=== PATIENT | female | born 1985 | race African-American/Black ===

== ENCOUNTER 2018-09-28 09:16 | Inpatient (IN) | payer MEDICARE, OTHER ==
[~2018-09-28] VITALS: Ht 165.1 cm; Wt 74.8 kg
[2018-09-28 11:40] VITALS: BP 116/69
--- NOTE | 2018-09-28 11:40 | NUR ---
RN NOTES RECEIVED PT FROM Lazaro BARTLETT, ON 2L O2 N/C , RESPIRATION EVEN AND UNLABORED, NO SOB NOTED , C/O GENERALIZED PAIN . ON TELE SR HR IN 70'S , L UPPER CHEST PORT A CATH , SITE CLEAN ,DRY AND INTACT, JESSICA BAILEY BURRING WHEEL OPERATOR NOTIFED REGARDING PT ARRIVAL TO THE FLOOR, SR UP X3, CALL LIGHT WITHIN EASY REACH, BED LOCKED AND IN LOWEST POSITION . CONTINUE TO MONITOR
[2018-09-28] MEDS ORDERED: [UNRECOGNIZED DRUG - OTHER] (11:41)
[2018-09-28] MEDS ORDERED: MAGNESIUM HYDROXIDE 30 ML UDC PO PRN (12:30)
[2018-09-28] MEDS ORDERED: HYDROMORPHONE INJ 2 MG/ML DISP.SYRIN IV PRN (12:30)
[2018-09-28] MEDS ORDERED: ACETAMINOPHEN 325 MG TABLET PO PRN (12:30)
[2018-09-28] MEDS ORDERED: HYDROCODONE/APAP 10/325MG 1 EA TABLET PO PRN (12:30)
[2018-09-28] MEDS ORDERED: HYDROCODONE/APAP 5/325MG 1 EACH TABLET PO PRN (12:30)
[2018-09-28] MEDS ORDERED: MAG HYDROX/AL HYDROX/SIMETH 30 ML UDC PO PRN (12:30)
[2018-09-28] MEDS ORDERED: Z GUARD REMEDY 2 OZ OINT TP PRN (12:30)
[2018-09-28] MEDS ORDERED: TIZA4TAB4 PO (12:54)
[2018-09-28] MEDS ORDERED: LORA0.5T PO (12:54)
[2018-09-28] MEDS ORDERED: DEFE360T PO (12:54)
[2018-09-28] MEDS ORDERED: ALBU18HF2 INH (12:54)
[2018-09-28] MEDS ORDERED: DIPH25CA83 PO (12:54)
[2018-09-28] MEDS ORDERED: MULT-24 PO (12:54)
[2018-09-28] MEDS ORDERED: FOLI1TAB16 PO (12:54)
[2018-09-28] MEDS ORDERED: FLUT1DIS3 IH (12:54)
[2018-09-28] MEDS ORDERED: ZOLP10TA6 PO (12:54)
[2018-09-28] MEDS ORDERED: CHOL100044 PO (12:54)
[2018-09-28] MEDS ORDERED: FERRIPROX PO (12:55)
--- NOTE | 2018-09-28 13:00 | NUR ---
RN NOTES PT STATED WILL BRING HOME MEDS SOON SHE CAN.
[2018-09-28] MEDS: IV NS 0.9% 1,000 ML IV PRN (13:02)
[2018-09-28 13:20] LABS: BASOPHILS # (AUTO) 0.5 /CMM (0.0-0.2); BASOPHILS % (AUTO) 4.5 % (0.0-2.0); HEMATOCRIT 22 % (33-45); HEMOGLOBIN 7.5 g/dL (11.5-14.8); LYMPHOCYTES # (AUTO) 3.5 /CMM (0.8-4.8); LYMPHOCYTES % (AUTO) 30.4 % (20.0-44.0); MEAN CORPUSCULAR HGB CONC 34 g/dl (31.0-36.0); MEAN CORPUSCULAR VOLUME 80 fL (82-100); MONOCYTES # (AUTO) 1.4 /CMM (0.1-1.30); MONOCYTES % (AUTO) 12.5 % (2.0-12.0); NEUTROPHILS # (AUTO) 5.5 /CMM (1.8-8.9); NEUTROPHILS % (AUTO) 48.6 % (43.0-81.0); PLATELET COUNT (AUTO) 477 /CMM (150-450); RED BLOOD CELL COUNT(AUTO) 2.73 MIL/uL (4.0-5.2); WHITE BLOOD COUNT (AUTO) 11.4 K/uL (4.3-11.0)
[2018-09-28 13:37] LABS: ALBUMIN 3.2 g/dL (3.4-5.0); BILIRUBIN,TOTAL 2.5 mg/dL (0.2-1.0); CALCIUM, SERUM 8.4 mg/dL (8.5-10.1); CREATININE 0.7 mg/dL (0.6-1.3); MAGNESIUM 1.4 mg/dL (1.8-2.4); PHOSPHORUS 4.2 mg/dL (2.5-4.9); POTASSIUM 3.9 mmol/L (3.5-5.1); TOTAL PROTEIN, SERUM 7.9 g/dL (6.4-8.2)
[2018-09-28] MEDS ORDERED: diphenhydrAMINE HCL 50 MG/ML VIAL IV PRN (14:00)
[2018-09-28] MEDS ORDERED: KEY,NONCONTROL,TO KEEP IN PYXI 1 EA MC ONE ×3 (14:33→20:12)
[2018-09-28] MEDS ORDERED: Magnesium 1GM/D5W 100ML PREMIX 100 ML IV SCH (15:00)
[2018-09-28] MEDS ORDERED: ALBUTEROL FS 2.5 MG/0.5 ML VIAL.NEB NEB PRN (15:00)
[2018-09-28] MEDS ORDERED: TIZANIDINE HCL 4 MG TABLET PO PRN (15:00)
[2018-09-28] MEDS ORDERED: IPRATROPIUM NEB FS 0.5 MG/2.5 ML AMPUL.NEB NEB PRN (15:00)
[2018-09-28] MEDS ORDERED: diphenhydrAMINE HCL 25 MG CAPSULE PO PRN (15:00)
[2018-09-28] MEDS ORDERED: LORAZEPAM 0.5 MG TABLET PO PRN (15:00)
[2018-09-28] MEDS: NS 0.9% IV PRN ×2 (15:22→20:21)
[2018-09-28] MEDS: HYDROMORPHONE IV PRN ×2 (15:22→20:21)
[2018-09-28] MEDS ORDERED: diphenhydrAMINE HCL 50 MG/ML VIAL IV ONE (15:30)
--- NOTE | 2018-09-28 15:44 | NUR ---
HAND ALTERATIONS SEAMSTRESS NOTES RECEIVED REPORT FROM DARREL FOR MARS.
--- NOTE | 2018-09-28 15:50 | NUR ---
RN NOTES REPORT GIVEN TO STEPHY JEWELL FOR CONTINUITY OF CARE .
[2018-09-28 16:00] VITALS: BP 113/71
[2018-09-28] MEDS: Magnesium 1GM/D5W 100ML PREMIX 100 ML IV SCH ×6 (16:20→21:00)
--- NOTE | 2018-09-28 16:22 | NUR ---
FUNERAL SERVICE APPRENTICE NOTES DC DILAUDID PUMP
--- NOTE | 2018-09-28 16:55 | NUR ---
SCALES INSPECTOR NOTES KEYS RETURNED IN OMNICELL
[2018-09-28] MEDS ORDERED: FLUTICASONE/SALMETEROL DISKUS IH SCH (17:00)
[2018-09-28] MEDS ORDERED: FERRIPROX PO SCH (17:00)
[2018-09-28] MEDS: ENOXAPARIN SODIUM 40 MG/0.4 ML DISP.SYRIN SQ SCH (17:00)
[2018-09-28] MEDS ORDERED: CEFTRIAXONE 1 G in IV NS 0.9% 100 ML IV SCH (18:00)
[2018-09-28] MEDS ORDERED: CEFTRIAXONE 1 G in IV D5W 50 ML IV SCH (18:30)
--- NOTE | 2018-09-28 18:58 | NUR ---
NURSING STUDENT NOTES PT RESTING IN BED. NOT IN ANY DISTRESS. NO SOB, DENIES PAIN. ONGOING MAGNESIUM IV 3RD BAG TO LEFT UPPER ARM PICC LINE. SITE CLEAR. ROCEPHIN IV NOT AVAILABLE YET AT THIS TIME. ALL NEEDS MET FOR NOW. SAFETY MEASURES IN PLACE. NO OTHER SIGNIFICANT CHANGE IN CONDITION. ENDORSED TO NEXT SHIFT FOR MARS.
[2018-09-28] MEDS: D5W IV PRN (19:40)
[2018-09-28] MEDS: DIPHENHYDRAMINE HCL IV PRN (19:40)
[2018-09-28 20:00] VITALS: BP 143/84
--- NOTE | 2018-09-28 20:15 | NUR ---
QUARRY EXTRACTION WORKER OPENING NOTES RECEIVED REPORT FROM STEPHY JEWELL. PATIENT A/A/O X4, ABLE TO MAKE NEEDS KNOWN. BREATHING EVEN & UNLABORED, TOLERATING ROOM AIR & REFUSES TO WEAR NC. SATING WELL @ 100%. DENIES ANY SOB OR DIFFICULTY BREATHING. ON TELE W/ SINUS RHYTHM, HR 89. LEFT CHEST WALL PORT-A-CATH INTACT & PATENT W/ DRESSING CDI & IVF NS INFUSING WELL @ 150 ML/HR. ALSO W/ ONGOING BENADRYL INFUSION. C/O GENERALIZED BODY PAIN W/ PAIN LEVEL 9/10, REPAIR ELECTRIC MOTOR ASSEMBLER PUMP W/ DILAUDID TO BE STARTED. SAFETY MEASURES MAINTAINED W/ SIDE RAILS UP & CALL LIGHT WITHIN REACH. ABLE TO AMBULATE INDEPENDENTLY. WILL CONTINUE TO MONITOR.
--- NOTE | 2018-09-28 20:49 | NUR ---
MEDICARE COMPLIANCE AUDITOR NOTES IV DILAUDID VIA SUPERVISOR QUILTING PUMP STARTED ALONG W/ IV ROCEPHIN. CHECKED COMPATIBILITY W/ PHARMACY & OK TO GIVE @ THE SAME TIME.
[2018-09-28] MEDS ORDERED: DOXYCYCLINE 100 MG in IV NS 0.9% 100 ML IV SCH (21:00)
[2018-09-29] VITALS: BP 129/75
[2018-09-29] MEDS: D5W IV PRN ×5 (00:46→20:47)
[2018-09-29] MEDS: DIPHENHYDRAMINE HCL IV PRN ×5 (00:46→20:47)
[2018-09-29] MEDS: HYDROMORPHONE IV PRN ×5 (01:23→21:31)
[2018-09-29] MEDS: NS 0.9% IV PRN ×5 (01:23→21:31)
[2018-09-29 04:00] VITALS: BP 113/70
[2018-09-29 04:34] LABS: BASOPHILS # (AUTO) 0.3 /CMM (0.0-0.2); BASOPHILS % (AUTO) 1.9 % (0.0-2.0); EOSINOPHILS % (AUTO) 5.7 % (0.0-6.0); HEMATOCRIT 21 % (33-45); HEMOGLOBIN 7.4 g/dL (11.5-14.8); LYMPHOCYTES # (AUTO) 5.6 /CMM (0.8-4.8); LYMPHOCYTES % (AUTO) 41.5 % (20.0-44.0); MEAN CORPUSCULAR HGB CONC 35 g/dl (31.0-36.0); MEAN CORPUSCULAR VOLUME 81 fL (82-100); MONOCYTES # (AUTO) 1.6 /CMM (0.1-1.30); MONOCYTES % (AUTO) 12.1 % (2.0-12.0); NEUTROPHILS # (AUTO) 5.2 /CMM (1.8-8.9); NEUTROPHILS % (AUTO) 38.8 % (43.0-81.0); PLATELET COUNT (AUTO) 462 /CMM (150-450); RED BLOOD CELL COUNT(AUTO) 2.63 MIL/uL (4.0-5.2); WHITE BLOOD COUNT (AUTO) 13.4 K/uL (4.3-11.0)
[2018-09-29 05:04] LABS: CALCIUM, SERUM 8.1 mg/dL (8.5-10.1); CREATININE 0.6 mg/dL (0.6-1.3); MAGNESIUM 1.9 mg/dL (1.8-2.4); PHOSPHORUS 4.1 mg/dL (2.5-4.9); POTASSIUM 4.3 mmol/L (3.5-5.1)
[2018-09-29 05:10] LABS: BILIRUBIN,DIRECT 0.5 mg/dL (0.0-0.2); BILIRUBIN,TOTAL 2.2 mg/dL (0.2-1.0)
[2018-09-29 05:26] LABS: THYROID STIMULATING HORMONE 4.28 uIU/mL (0.358-3.74)
[2018-09-29 06:53] LABS: BILIRUBIN,URINE NEGATIVE (NEGATIVE); BLOOD, URINE NEGATIVE Ery/uL (NEGATIVE); COLOR,URINE YELLOW (YELLOW); KETONES,URINE NEGATIVE (NEGATIVE); LEUKOCYTE ESTERASE ,URINE NEGATIVE (NEGATIVE); NITRITE, URINE NEGATIVE (NEGATIVE); PH,URINE 6.5 (5.0-8.0); PROTEIN,URINE NEGATIVE (NEGATIVE); UGLUCOSE NEGATIVE (NEGATIVE)
[2018-09-29 07:53] LABS: APPEARANCE,URINE SLIGHTLY CLOUDY (CLEAR)
[2018-09-29 07:55] LABS: BACTERIA,URINE None seen /HPF (None Seen); RBC,URINE 0-2 /HPF (0-2); SQUAMOUS EPITHELIAL CELL,UR Few /HPF (None Seen); WBC,URINE 0-2 /HPF (0-3)
[2018-09-29 08:00] VITALS: BP 122/78
--- NOTE | 2018-09-29 08:51 | NUR ---
WOUND CARE CONSULT: PT PRESENTS WITH RT HIP SCAR, PRESENT ON ADMISSION. PT IS AMBULATORY AND CONTINENT. PT TO PROTECT SCAR WITH MEPILEX WHILE SHE IS LYING IN BED. DISCUSSED WITH NURSING STAFF. WILL SEE PRN. CURRENT JESSE SCORE IS 21. Addendum: 09/29/18 at 0852 by FERMIN THOMPSON WNDNU Amended: Links added.
[2018-09-29] MEDS: FLUTICASONE/VILANTEROL 1 EACH BLST.W.DEV IH SCH (08:55)
[2018-09-29] MEDS: MULTIVITAMINS,THERAGRAN 1 UDTAB TABLET PO SCH (08:58)
[2018-09-29] MEDS: FOLIC ACID 1 MG TABLET PO SCH (08:58)
[2018-09-29] MEDS: CHOLECALCIFEROL 1,000 UNIT TABLET (VIT D3) PO SCH (08:58)
[2018-09-29] MEDS ORDERED: DEFERASIROX PO SCH (09:00)
[2018-09-29] MEDS: IV NS 0.9% 1,000 ML IV PRN ×2 (09:19→22:38)
[2018-09-29] MEDS: LINEZOLID RTU BAG 600 MG in PREMIX 1 EA IV SCH ×2 (11:33→20:49)
[2018-09-29] MEDS: PIPERACILLIN /TAZOBACTAM 3.375 G in IV D5W 50 ML IV SCH ×2 (13:47→18:11)
--- NOTE | 2018-09-29 14:05 | NUR ---
ms rn notes dr villagomez rounded with patient. all questions answered.
[2018-09-29 16:00] VITALS: BP_SYST 120; BP_SYST 122; BP_DIAS 68; BP_DIAS 78
[2018-09-29] MEDS ORDERED: CEFTRIAXONE 1 G in IV D5W 50 ML IV SCH (18:00)
--- NOTE | 2018-09-29 19:00 | NUR ---
MS RN NOTES PT IN STABLE CONDITION. NO C/O PAIN AT THIS TIME. ENDORSED TO PM NURSE FOR MARS.
[2018-09-29 20:00] VITALS: BP 122/69
--- NOTE | 2018-09-29 20:00 | NUR ---
INSPECTOR PRINTED CIRCUIT BOARDS OPENING NOTES RECEIVED REPORT FROM JOHN JEWELL. PATIENT A/A/O X4, ABLE TO MAKE NEEDS KNOWN. BREATHING EVEN & UNLABORED, TOLERATING ROOM AIR & REFUSES TO WEAR NC. SATING WELL @ 100%. DENIES ANY SOB OR DIFFICULTY BREATHING. RADIAL PULSES PRESENT, REFUSING TO WEAR TELE LEADS. LEFT CHEST WALL PORT-A-CATH INTACT & PATENT W/ DRESSING CDI & IVF NS INFUSING WELL @ 150 ML/HR. C/O GENERALIZED BODY PAIN W/ PAIN LEVEL 9/10, SUPERINTENDENT COMPRESSOR STATIONS PUMP W/ DILAUDID TO BE STARTED. SAFETY MEASURES MAINTAINED W/ SIDE RAILS UP & CALL LIGHT WITHIN REACH. ABLE TO AMBULATE INDEPENDENTLY. WILL CONTINUE TO MONITOR.
[2018-09-29] MEDS: ENOXAPARIN SODIUM 40 MG/0.4 ML DISP.SYRIN SQ SCH (20:47)
[2018-09-30] MEDS: PIPERACILLIN /TAZOBACTAM 3.375 G in IV D5W 50 ML IV SCH ×5 (00:13→23:19)
[2018-09-30] MEDS: DIPHENHYDRAMINE HCL IV PRN ×6 (00:55→21:05)
[2018-09-30] MEDS: D5W IV PRN ×6 (00:55→21:05)
[2018-09-30] MEDS: ZOLPIDEM TARTRATE 10 MG TABLET PO PRN (01:28)
[2018-09-30] MEDS: NS 0.9% IV PRN ×6 (01:29→21:58)
[2018-09-30] MEDS: HYDROMORPHONE IV PRN ×6 (01:29→21:58)
[2018-09-30 04:00] VITALS: BP 130/62
[2018-09-30 07:26] LABS: BASOPHILS # (AUTO) 0.4 /CMM (0.0-0.2); BASOPHILS % (AUTO) 2.9 % (0.0-2.0); EOSINOPHILS % (AUTO) 8.6 % (0.0-6.0); HEMATOCRIT 21 % (33-45); HEMOGLOBIN 7.1 g/dL (11.5-14.8); LYMPHOCYTES # (AUTO) 4.6 /CMM (0.8-4.8); LYMPHOCYTES % (AUTO) 34.3 % (20.0-44.0); MEAN CORPUSCULAR HGB CONC 34 g/dl (31.0-36.0); MEAN CORPUSCULAR VOLUME 81 fL (82-100); MONOCYTES % (AUTO) 15.3 % (2.0-12.0); NEUTROPHILS # (AUTO) 5.2 /CMM (1.8-8.9); NEUTROPHILS % (AUTO) 38.9 % (43.0-81.0); PLATELET COUNT (AUTO) 472 /CMM (150-450); RED BLOOD CELL COUNT(AUTO) 2.58 MIL/uL (4.0-5.2); WHITE BLOOD COUNT (AUTO) 13.3 K/uL (4.3-11.0)
[2018-09-30] MEDS: ONDANSETRON HCL/PF 4 MG/2 ML VIAL IVP PRN (07:38)
[2018-09-30] MEDS: IV NS 0.9% 1,000 ML IV PRN ×2 (07:38→17:01)
--- NOTE | 2018-09-30 07:52 | NUR ---
RN NOTE: PATIENT RECEIVED ALERT AWAKE ORIENTED X 4. ON ROOM AIR, NO BREATHING DISTRESS NOTED. PATIENT VERBALIZE IN PAIN, CAN TOLERATE UNTIL NEXT PRN PAIN RELIEVE MEDICATION IS DUE. LEFT CHEST WALL SANDRA CATH INTACT, RUNNING WITH IV FLUIDS ORDERED. SAFETY MEASURES OBSERVED. ENCOURAGE TO USE CALL LIGHT FOR ASSISTANCE. CALL LIGHT WITHIN REACH. CONTINUE WITH PLAN OF CARE.
[2018-09-30 07:57] LABS: ALBUMIN 2.9 g/dL (3.4-5.0); BILIRUBIN,TOTAL 2.6 mg/dL (0.2-1.0); CALCIUM, SERUM 8.3 mg/dL (8.5-10.1); CREATININE 0.7 mg/dL (0.6-1.3); MAGNESIUM 1.5 mg/dL (1.8-2.4); PHOSPHORUS 4.8 mg/dL (2.5-4.9); POTASSIUM 4.3 mmol/L (3.5-5.1); TOTAL PROTEIN, SERUM 7.3 g/dL (6.4-8.2)
[2018-09-30 08:00] VITALS: BP 110/64
[2018-09-30] MEDS: CHOLECALCIFEROL 1,000 UNIT TABLET (VIT D3) PO SCH (08:58)
[2018-09-30] MEDS: FLUTICASONE/VILANTEROL 1 EACH BLST.W.DEV IH SCH (08:58)
[2018-09-30] MEDS: FOLIC ACID 1 MG TABLET PO SCH (08:58)
[2018-09-30] MEDS: MULTIVITAMINS,THERAGRAN 1 UDTAB TABLET PO SCH (08:58)
[2018-09-30 09:45] LABS: BAND % (MANUAL) 1 % (0.0-5.0); EOSINOPHILS % (MANUAL) 7 % (0-4); LYMPHOCYTES % (MANUAL) 32 % (16-48); MONOCYTES % (MANUAL) 19 % (0-11.0); NEUTROPHILS % (MANUAL) 41 (42-76)
[2018-09-30] MEDS: Magnesium 1GM/D5W 100ML PREMIX 100 ML IV SCH ×2 (10:44→11:50)
[2018-09-30 12:00] VITALS: BP 134/77
[2018-09-30 16:00] VITALS: BP 111/67
--- NOTE | 2018-09-30 18:48 | NUR ---
RN NOTE: PATIENT REMAINS ALERT AWAKE ORIENTED X 4. ON ROOM AIR, NO BREATHING DISTRESS NOTED. CONTINUE WITH BENEDRYL IV & DILAUDID LABORATORY MONITOR IV THERAPY FOR PAIN, NOTED EFFECTIVE. NO SIGNIFICANT CHANGES NOTED DURING SHIFT. CONTINUE WITH PLAN OF CARE.
[2018-09-30 20:00] VITALS: BP_SYST 105; BP_SYST 110; BP_DIAS 40; BP_DIAS 56
--- NOTE | 2018-09-30 20:00 | NUR ---
RN/MS NOTES: RECEIVED PT. IN BED WATCHING MOVIES. W/ SANDRA CATH ON LT. CHEST WALL W/ DRESSING C/D/I. A/O X 4. CONTINENT OF B/B. ABLE TO AMBULATE W/ STEADY GAIT. HAS NS AT 150 ML/HR. GETS DILAUDID AND BENADRYL PER REQUEST. ALL NEEDS MEET. WILL CONTINUE TO MONITOR.
[2018-09-30] MEDS: ENOXAPARIN SODIUM 40 MG/0.4 ML DISP.SYRIN SQ SCH ×2 (21:00→21:05)
[2018-10-01] MEDS: DIPHENHYDRAMINE HCL IV PRN ×6 (00:58→23:07)
[2018-10-01] MEDS: D5W IV PRN ×6 (00:58→23:07)
[2018-10-01] MEDS: IV NS 0.9% 1,000 ML IV PRN ×3 (01:09→20:32)
[2018-10-01] MEDS: NS 0.9% IV PRN ×4 (01:13→19:44)
[2018-10-01] MEDS: HYDROMORPHONE IV PRN ×4 (01:13→19:44)
[2018-10-01] MEDS: ONDANSETRON HCL/PF 4 MG/2 ML VIAL IVP PRN (02:11)
[2018-10-01] MEDS: ZOLPIDEM TARTRATE 10 MG TABLET PO PRN (02:12)
[2018-10-01 04:00] VITALS: BP 104/66
[2018-10-01] MEDS: PIPERACILLIN /TAZOBACTAM 3.375 G in IV D5W 50 ML IV SCH ×2 (06:15→12:06)
--- NOTE | 2018-10-01 07:24 | NUR ---
RN/MS NOTES: REPORT GIVEN TO NEXT SHIFT NURSE FOR MARS.
[2018-10-01 07:41] LABS: BASOPHILS # (AUTO) 0.3 /CMM (0.0-0.2); EOSINOPHILS % (AUTO) 9.8 % (0.0-6.0); HEMATOCRIT 21 % (33-45); HEMOGLOBIN 7.1 g/dL (11.5-14.8); LYMPHOCYTES # (AUTO) 4.8 /CMM (0.8-4.8); LYMPHOCYTES % (AUTO) 34.7 % (20.0-44.0); MEAN CORPUSCULAR HGB CONC 34 g/dl (31.0-36.0); MEAN CORPUSCULAR VOLUME 80 fL (82-100); MONOCYTES # (AUTO) 1.4 /CMM (0.1-1.30); MONOCYTES % (AUTO) 9.7 % (2.0-12.0); NEUTROPHILS # (AUTO) 6.1 /CMM (1.8-8.9); NEUTROPHILS % (AUTO) 43.8 % (43.0-81.0); PLATELET COUNT (AUTO) 488 /CMM (150-450); RED BLOOD CELL COUNT(AUTO) 2.59 MIL/uL (4.0-5.2)
[2018-10-01 07:43] LABS: CALCIUM, SERUM 8.2 mg/dL (8.5-10.1); CREATININE 0.7 mg/dL (0.6-1.3); MAGNESIUM 1.6 mg/dL (1.8-2.4); PHOSPHORUS 4.9 mg/dL (2.5-4.9); POTASSIUM 4.4 mmol/L (3.5-5.1); TOTAL PROTEIN, SERUM 7.4 g/dL (6.4-8.2)
[2018-10-01 08:00] VITALS: BP 120/69
--- NOTE | 2018-10-01 08:24 | NUR ---
RN MS OPENING NOTES RECEIVED BEDSIDE REPORT. PATIENT A/O X4 AMBULATORY IN ROOM WITH BRP. NO SIGNS OR SYMPTOMS OF RESPIRATORY DISTRESS . CHRONIC PAIN R/T SICKLE CELL CRISIS CO SIGNED FOR DILAUDID PALLET REPAIRER WITH PRABHA JEWELL . RUNNING @ 50 ML/HR FOR 30 MINUTES. DOSING OFF INTERMITTENTLY IVF RUNNING TO LCW SANDRA CATH ASEPTIC TECH USED AT ALL TIMES SAFETY PRECAUTIONS INPLACE BED IN LOW POSITION CALL LIGHT WITHIN REACH. .
[2018-10-01] MEDS: MULTIVITAMINS,THERAGRAN 1 UDTAB TABLET PO SCH (09:23)
[2018-10-01] MEDS: CHOLECALCIFEROL 1,000 UNIT TABLET (VIT D3) PO SCH (09:23)
[2018-10-01] MEDS: FOLIC ACID 1 MG TABLET PO SCH (09:24)
[2018-10-01] MEDS: FLUTICASONE/VILANTEROL 1 EACH BLST.W.DEV IH SCH (09:34)
[2018-10-01] MEDS: Magnesium 1GM/D5W 100ML PREMIX 100 ML IV SCH ×2 (09:53→12:35)
--- NOTE | 2018-10-01 11:20 | NUR ---
ROUNDS WITH MD PATIENT PATIENT SICKLING IMPROVING PNEUMONIA NOT RESOLVING CARE TO CONT BENADRYL AND DILAUDID AND ID CONSULT FOR PNEUMONIA
[2018-10-01] MEDS: LACTOBACILLUS RHAMNOSUS GG 1 EACH CAP.SPRINK PO SCH ×2 (12:06→17:38)
[2018-10-01 16:00] VITALS: BP 128/79
--- NOTE | 2018-10-01 18:31 | NUR ---
RN MS NOTES PATIENT A/O X4 PLEASANT YOUNG GIRL WITH SICKLE CELL CRISIS SLOWLY RESOLVING. DILAUDID AND BENADRYL GIVEN Q4 HR FOR PAIN IVPB.NO SIGNS OR SYMPTOMS OF RESPIRATORY DISTRESS NOTED. AMBULATORY IN ROOM WITH BRP. 3X EPISODES OF LOSE STOOL PROBIOTIC ORDERED. IVATB CHANGED TO ORAL SKIN APPETITE POOR DOES NOT CARE FOR THE FOOD. LCW PORT A CATH NS @ 150 ML/HR RUNNING. PATIENT CHANGED OWN DRESSING. ABLE TO MAKE NEEDS KNOWN AND ALL MET BY STAFF. SAFETY PRECAUTIONS IN PLACE BED IN LOW POSITION ALL BELONGINGS WITHIN REACH. CALL LIGHT WITHIN REACH
--- NOTE | 2018-10-01 19:20 | NUR ---
RN M/S NOTE RECEIVED PT RESTING WITH HOB ELEVATED, AOX3, NO S/SX OF CARDIAC OR RESPIRATORY DISTRESS NOTED, LCW SANDRA CATH WITH NS AT 150 ML/HR, PATENT FLUSHING WELL, SAFETY MAINTAINED AT ALL TIMES, BED IN LOW, LOCKED POSITION, CALL LIGHT WITHIN REACH, WILL CONTINUE TO MONITOR FOR ANY CHANGES IN CONDITION.
--- NOTE | 2018-10-01 19:23 | NUR ---
REPORT ENDORSED TO NOC
[2018-10-01 20:00] VITALS: BP 133/74
[2018-10-01] MEDS: AMOX/CLAVULANATE 875 MG TABLET PO SCH (20:34)
[2018-10-01] MEDS: ENOXAPARIN SODIUM 40 MG/0.4 ML DISP.SYRIN SQ SCH (20:43)
[2018-10-02] MEDS: NS 0.9% IV PRN ×6 (00:04→21:07)
[2018-10-02] MEDS: HYDROMORPHONE IV PRN ×6 (00:04→21:07)
[2018-10-02] MEDS: ZOLPIDEM TARTRATE 10 MG TABLET PO PRN (00:06)
[2018-10-02] MEDS: ONDANSETRON HCL/PF 4 MG/2 ML VIAL IVP PRN (00:06)
[2018-10-02 04:00] VITALS: BP 120/76
[2018-10-02] MEDS: DIPHENHYDRAMINE HCL IV PRN ×5 (04:14→20:32)
[2018-10-02] MEDS: D5W IV PRN ×5 (04:14→20:32)
--- NOTE | 2018-10-02 07:28 | NUR ---
RN MS OPENING NOTES RECEIVED BEDSIDE REPORT. PATIENT A/O X4 AMBULATORY IN ROOM WITH BRP. NO SIGNS OR SYMPTOMS OF RESPIRATORY DISTRESS . CHRONIC PAIN R/T SICKLE CELL ANEMIA.NS RUNNING IN LCW PORT A CATH @150 ML/HR ASEPTIC TECH USED AT ALL TIMES SAFETY PRECAUTIONS IN PLACE BED IN LOW POSITION BELONGINGS AND CALL LIGHT WITHIN REACH
[2018-10-02 07:33] LABS: CREATININE 0.6 mg/dL (0.6-1.3); MAGNESIUM 1.6 mg/dL (1.8-2.4); PHOSPHORUS 4.9 mg/dL (2.5-4.9); POTASSIUM 4.4 mmol/L (3.5-5.1)
[2018-10-02 07:41] LABS: BASOPHILS # (AUTO) 0.2 /CMM (0.0-0.2); BASOPHILS % (AUTO) 1.5 % (0.0-2.0); EOSINOPHILS % (AUTO) 8.7 % (0.0-6.0); LYMPHOCYTES # (AUTO) 4.3 /CMM (0.8-4.8); LYMPHOCYTES % (AUTO) 27.3 % (20.0-44.0); MEAN CORPUSCULAR HGB CONC 34 g/dl (31.0-36.0); MEAN CORPUSCULAR VOLUME 80 fL (82-100); MONOCYTES # (AUTO) 1.6 /CMM (0.1-1.30); NEUTROPHILS # (AUTO) 8.3 /CMM (1.8-8.9); NEUTROPHILS % (AUTO) 52.5 % (43.0-81.0); PLATELET COUNT (AUTO) 512 /CMM (150-450); RED BLOOD CELL COUNT(AUTO) 2.54 MIL/uL (4.0-5.2); WHITE BLOOD COUNT (AUTO) 15.8 K/uL (4.3-11.0)
[2018-10-02 07:48] LABS: HEMATOCRIT 20 % (33-45)
[2018-10-02 08:00] VITALS: BP 109/61
[2018-10-02] MEDS: AMOX/CLAVULANATE 875 MG TABLET PO SCH ×2 (08:09→21:06)
[2018-10-02] MEDS: LACTOBACILLUS RHAMNOSUS GG 1 EACH CAP.SPRINK PO SCH ×2 (08:09→16:29)
[2018-10-02] MEDS: FLUTICASONE/VILANTEROL 1 EACH BLST.W.DEV IH SCH (08:09)
[2018-10-02] MEDS: MULTIVITAMINS,THERAGRAN 1 UDTAB TABLET PO SCH (08:09)
[2018-10-02] MEDS: FOLIC ACID 1 MG TABLET PO SCH (08:09)
[2018-10-02] MEDS: CHOLECALCIFEROL 1,000 UNIT TABLET (VIT D3) PO SCH (08:10)
[2018-10-02 10:39] LABS: BAND % (MANUAL) 1 % (0.0-5.0); EOSINOPHILS % (MANUAL) 4 % (0-4); LYMPHOCYTES % (MANUAL) 22 % (16-48); MONOCYTES % (MANUAL) 8 % (0-11.0); MYELOCYTES % 1 % (0-0); NEUTROPHILS % (MANUAL) 64 (42-76)
[2018-10-02] MEDS: Magnesium 1GM/D5W 100ML PREMIX 100 ML IV SCH ×2 (13:16→14:17)
[2018-10-02] MEDS: IV NS 0.9% 1,000 ML IV PRN (15:35)
[2018-10-02 16:00] VITALS: BP 111/70
--- NOTE | 2018-10-02 19:05 | NUR ---
RN MS NOTES PATIENT A/O X4 PLEASANT YOUNG GIRL WITH SICKLE CELL CRISIS SLOWLY RESOLVING. DILAUDID AND BENADRYL GIVEN Q4 HR FOR PAIN IVPB.C/O SOB 2 LTRS NASAL CANNULA . AMBULATORY IN ROOM WITH BRP. 3X EPISODES OF LOSE STOOL PROBIOTIC ORDERED. IVATB CHANGED TO ORAL SKIN APPETITE POOR DOES NOT CARE FOR THE FOOD. LCW PORT A CATH NS @ 150 ML/HR RUNNING. PATIENT CHANGED OWN DRESSING. ABLE TO MAKE NEEDS KNOWN AND ALL MET BY STAFF. SAFETY PRECAUTIONS IN PLACE BED IN LOW POSITION ALL BELONGINGS WITHIN REACH. CALL LIGHT WITHIN REACH
--- NOTE | 2018-10-02 19:19 | NUR ---
REPORT ENDORSED TO NOC
--- NOTE | 2018-10-02 19:20 | NUR ---
RN M/S NOTE RECEIVED PT RESTING WITH HOB ELEVATED, AOX3, ON ROOM AIR, NO S/SX OF CARDIAC OR RESPIRATORY DISTRESS NOTED, LCW SANDRA CATH WITH NS AT 150 ML/HR, PATENT FLUSHING WELL, SAFETY MAINTAINED AT ALL TIMES, BED IN LOW, LOCKED POSITION, CALL LIGHT WITHIN REACH, WILL CONTINUE TO MONITOR FOR ANY CHANGES IN CONDITION.
[2018-10-02 20:00] VITALS: BP 112/63
[2018-10-02] MEDS: ENOXAPARIN SODIUM 40 MG/0.4 ML DISP.SYRIN SQ SCH (21:00)
[2018-10-03] VITALS (10 sets, daily range): BP systolic 98–118; BP diastolic 56–73
[2018-10-03] MEDS: DIPHENHYDRAMINE HCL IV PRN ×6 (00:31→21:17)
[2018-10-03] MEDS: D5W IV PRN ×6 (00:31→21:17)
[2018-10-03] MEDS: NS 0.9% IV PRN ×6 (01:08→21:37)
[2018-10-03] MEDS: HYDROMORPHONE IV PRN ×6 (01:08→21:37)
[2018-10-03] MEDS: ZOLPIDEM TARTRATE 10 MG TABLET PO PRN (02:02)
--- NOTE | 2018-10-03 06:14 | NUR ---
RN M/S NOTE PATIENT DILAUDID 2MG IV WAS ADMINISTERED AT 0530 VIA VICE PRESIDENT COMPLIANCE PUMP UNABLE TO GET COSIGN UNTIL 0613 DUE TO EMERGENCY, ENDORSED TO AM NURSE.
[2018-10-03 07:02] LABS: BASOPHILS # (AUTO) 0.3 /CMM (0.0-0.2); BASOPHILS % (AUTO) 1.5 % (0.0-2.0); EOSINOPHILS % (AUTO) 12.4 % (0.0-6.0); LYMPHOCYTES % (AUTO) 29.8 % (20.0-44.0); MEAN CORPUSCULAR HGB CONC 35 g/dl (31.0-36.0); MEAN CORPUSCULAR VOLUME 80 fL (82-100); MONOCYTES # (AUTO) 1.5 /CMM (0.1-1.30); NEUTROPHILS % (AUTO) 47.3 % (43.0-81.0); PLATELET COUNT (AUTO) 499 /CMM (150-450); RED BLOOD CELL COUNT(AUTO) 2.41 MIL/uL (4.0-5.2); WHITE BLOOD COUNT (AUTO) 16.9 K/uL (4.3-11.0)
[2018-10-03 07:12] LABS: HEMOGLOBIN 6.8 g/dL (11.5-14.8)
--- NOTE | 2018-10-03 07:12 | NUR ---
RN M/S NOTE CALL FROM LAB DUE TO HGB 6.8 HCT 19, ENDORSED TO AM NURSE FOR CONTINUATION OF CARE
[2018-10-03 07:13] LABS: BILIRUBIN,TOTAL 2.3 mg/dL (0.2-1.0); CALCIUM, SERUM 8.3 mg/dL (8.5-10.1); CREATININE 0.6 mg/dL (0.6-1.3); HEMATOCRIT 19 % (33-45); MAGNESIUM 1.5 mg/dL (1.8-2.4); PHOSPHORUS 4.6 mg/dL (2.5-4.9); POTASSIUM 4.3 mmol/L (3.5-5.1); TOTAL PROTEIN, SERUM 7.4 g/dL (6.4-8.2)
--- NOTE | 2018-10-03 07:50 | NUR ---
MS RN OPENING NOTES RECEIVED PT LAYING IN BED WITH HOB SLIGHTLY ELEVATED. PT IS A/O X4, AFEBRILE. RESPIRATIONS ARE EVEN AND UNLABORED, NOT IN ANY ACUTE DISTRESS NOTED. C/O GENERALIZED PAIN 8/10 AND WILL MEDICATE ACCORDINGLY. DENIES ANY SOB, N/V AT THIS TIME. PORT-A-CATH TO LCW INTACT, NO INFILTRATION NOTED. DRESSING KEPT CLEAN AND DRY. IV FLUIDS RUNNING AT 150ML/HR, TOLERATING WELL. SAFETY MEASURES ARE IN PLACE. INSTRUCTED PT TO USE CALL LIGHT WHEN ASSISTANCE IS NEEDED, CALL LIGHT IS LEFT WITHIN REACH. WILL CONTINUE TO MONITOR THROUGHOUT SHIFT FOR CONTINUITY OF CARE.
--- NOTE | 2018-10-03 08:00 | NUR ---
MS RN NOTES-- CALLED PHARMACY, SPOKE WITH NAZARIO RE: DILAUDID. PER SHUTTLER NURSE, DILAUDID WAS ADMINISTERED AT 0515 BUT ON EMAR SAYS SCANNED AT 0613. ORDER IS PRN Q4H. PER NAZARIO, FOLLOW UP WITH HOSPITALIST. NOTIFIED DONNELL HOBSON RE: DILAUDID AND STATED THAT ITS OKAY TO GIVE JUST LONG VITALS ARE STABLE.
[2018-10-03 08:04] LABS: EOSINOPHILS % (MANUAL) 10 % (0-4); LYMPHOCYTES % (MANUAL) 28 % (16-48); MONOCYTES % (MANUAL) 10 % (0-11.0); NEUTROPHILS % (MANUAL) 52 (42-76)
--- NOTE | 2018-10-03 08:15 | NUR ---
MS RN NOTES-- JAZLYN, FORENSIC AUDIT EXPERT MADE AWARE OF H/H RESULTS. PER JAZLYN, GIVE 1 UNIT PRBC. ORDERS READ BACK AND VERIFIED.
[2018-10-03] MEDS: MULTIVITAMINS,THERAGRAN 1 UDTAB TABLET PO SCH (08:35)
[2018-10-03] MEDS: LACTOBACILLUS RHAMNOSUS GG 1 EACH CAP.SPRINK PO SCH ×2 (08:35→16:27)
[2018-10-03] MEDS: AMOX/CLAVULANATE 875 MG TABLET PO SCH ×2 (08:35→21:21)
[2018-10-03] MEDS: FOLIC ACID 1 MG TABLET PO SCH (08:35)
[2018-10-03] MEDS: FLUTICASONE/VILANTEROL 1 EACH BLST.W.DEV IH SCH (08:35)
[2018-10-03] MEDS: CHOLECALCIFEROL 1,000 UNIT TABLET (VIT D3) PO SCH (08:36)
--- NOTE | 2018-10-03 08:36 | NUR ---
MS RN NOTES-- ADMINISTERED BENADRYL IV DRIP FOR ITCHINESS. LENA NOTE EFFECTIVENESS.
--- NOTE | 2018-10-03 09:18 | NUR ---
MS RN NOTES-- ADMINISTERED DILAUDID 2MG VIA CLEARANCE REPRESENTATIVE PUMP W/ RN ZAIN. WILL NOTE EFFECTIVENESS. CLEARANCE REPRESENTATIVE PUMP PAPER SIGNED AND PLACED IN CLEARANCE REPRESENTATIVE PUMP CHART.
--- NOTE | 2018-10-03 09:20 | NUR ---
MS RN NOTES-- PT STATED SHE WILL WAIT ON THE BLOOD TRANSFUSION AND SPEAK TO HER DAD.
[2018-10-03] MEDS: Magnesium 1GM/D5W 100ML PREMIX 100 ML IV SCH ×2 (11:18→12:17)
--- NOTE | 2018-10-03 12:27 | NUR ---
MS RN NOTES-- ADMINISTERED BENADRYL FOR ITCHINESS. WILL NOTE EFFECTIVENESS. LAST ADMINISTRATION WAS NOTED WITH EFFECTIVENESS.
--- NOTE | 2018-10-03 12:45 | NUR ---
MS JEWELL NOTES-- BLOOD TRANSFUSION 1 UNIT PRBC ORDERED. CONSENT SIGNED.
--- NOTE | 2018-10-03 13:15 | NUR ---
MS RN NOTES-- PT SEEN AND EXAMINED BY DONNELL NERI.
--- NOTE | 2018-10-03 13:16 | NUR ---
MS RN NOTES-- ADMINITER DILAUDID 2MG VIA TOOL MAINTENANCE WORKER PUMP. WILL NOTE EFFECTIVENESS. COSIGNED WITH TAWANDA JEWELL.
[2018-10-03] MEDS: IV NS 0.9% 1,000 ML IV PRN (16:27)
--- NOTE | 2018-10-03 16:29 | NUR ---
MS RN NOTES-- ADMINISTERED BENADRYL IVP PRIOR TO ADMINISTRATION OF DILAUDID. WILL CONTINUE TO MONITOR CLOSELY.
--- NOTE | 2018-10-03 17:20 | NUR ---
MS RN NOTES-- ADMINISTERED DILAUDID 2MG IVPB FOR GENERALIZED PAIN AND DX OF SICKLE CELL. WILL CONTINUE TO MONITOR CLOSELY.
--- NOTE | 2018-10-03 17:41 | NUR ---
MS RN NOTES-- PT REQUESTED FOR TYLENOL 500MG PO X1 AND BENADRYL 50MG IVP X1 PRIOR TO BLOOD TRANSFUSION. DONNELL NERI NOTIFIED WITH ORDERS NOTED AND CARRIED OUT.
--- NOTE | 2018-10-03 17:42 | NUR ---
MS RN NOTES-- PT REQUESTED FOR BLOOD TRANSFUSION TO START AT 1830.
[2018-10-03] MEDS ORDERED: diphenhydrAMINE HCL 50 MG/ML VIAL IV ONE (18:00)
[2018-10-03] MEDS ORDERED: ACETAMINOPHEN ES 500 MG TABLET PO ONE (18:00)
--- NOTE | 2018-10-03 18:10 | NUR ---
MS RN NOTES-- WENT TO BLOOD BANK AND BLOOD BANK PERSON IS ON BREAK FOR 25 MINS MORE. WILL GO BACK TO FIRE CONTROL OFFICER BLOOD.
--- NOTE | 2018-10-03 18:56 | NUR ---
MS RN NOTES-- BLOOD TRANSFUSION STARTED AT 1856. WILL CONTINUE TO MONITOR CLOSELY FOR ANY ASE.
--- NOTE | 2018-10-03 19:20 | NUR ---
MS RN CLOSING NOTES ALL DUE MEDS GIVEN, NEEDS MET AND RENDERED. PT IS A/O X4, AFEBRILE. RESPIRATIONS ARE EVEN AND UNLABORED, NOT IN ANY ACUTE DISTRESS NOTED. PT DENIES ANY PAIN AT THIS TIME, NO C/O SOB, N/V. PORTACATH TO LCW INTACT, NO INFILTRATION OR S/SX INFECTION NOTED. SAFETY MEASURES ARE IN [place]. CURRENTLY TRANSFUSION 1UNIT PRBC W/ NO ASE NOTED. CALL LIGHT IS LEFT WITHIN REACH. ENDORSED TO ONLINE SERVICES MANAGER NURSE.
--- NOTE | 2018-10-03 19:20 | NUR ---
MS RN OPENING NOTES Received patient A/O x4, awake on bed. With BT 1U on going. No discomfort noted at this time. Will continue to monitor accordingly. Call light within easy reach.
--- NOTE | 2018-10-03 19:41 | NUR ---
MS RN NOTES Patient A/O x4, awake on bed watching movie on ipad. Denies any discomfort at this time. Increase BT rate to finished within 4hrs. Will continue to monitor accordingly.
[2018-10-03] MEDS: ENOXAPARIN SODIUM 40 MG/0.4 ML DISP.SYRIN SQ SCH (21:21)
[2018-10-04] MEDS: DIPHENHYDRAMINE HCL IV PRN ×3 (01:18→09:27)
[2018-10-04] MEDS: D5W IV PRN ×3 (01:18→09:27)
[2018-10-04] MEDS: HYDROMORPHONE IV PRN ×3 (01:33→10:10)
[2018-10-04] MEDS: NS 0.9% IV PRN ×3 (01:33→10:10)
[2018-10-04] MEDS: IV NS 0.9% 1,000 ML IV PRN ×2 (02:40→10:04)
--- NOTE | 2018-10-04 06:28 | NUR ---
MS RN CLOSING NOTES Patient asleep on bed, easily awaken. No new complaints made. Medicated for pain, noted effective. S/P BT 1unit PRBC, no new unusualities noted. All nursing needs attended, no new complaint made. Call light within easy reach. Endorsed to the next shift.
[2018-10-04] MEDS ORDERED: ONDANSETRON HCL/PF 4 MG/2 ML VIAL IV PRN (07:00)
[2018-10-04] MEDS: ONDANSETRON HCL/PF 4 MG/2 ML VIAL IVP PRN (07:05)
--- NOTE | 2018-10-04 07:10 | NUR ---
MS RN NOTES PATIENT IN BED ALERT ORIENTED X 4. NO ACUTE DISTRESS NOTED. BREATHING UNLABORED. NO SOB NOTED. IV ACCESS PATENT AND INTACT, NO REDNESS OR SWELLING NOTED. SAFETY MEASURES IN PLACE. CALL LIGHT WITHIN REACH. WILL CONTINUE TO MONITOR ACCORDINGLY.
[2018-10-04 07:44] LABS: WHITE BLOOD COUNT (AUTO) 15.4 K/uL (4.3-11.0)
[2018-10-04 07:45] LABS: BASOPHILS % (AUTO) 2.1 % (0.0-2.0); EOSINOPHILS % (AUTO) 11.5 % (0.0-6.0); HEMATOCRIT 24 % (33-45); HEMOGLOBIN 8.1 g/dL (11.5-14.8); LYMPHOCYTES # (AUTO) 4.2 /CMM (0.8-4.8); LYMPHOCYTES % (AUTO) 27.3 % (20.0-44.0); MEAN CORPUSCULAR HGB CONC 34 g/dl (31.0-36.0); MEAN CORPUSCULAR VOLUME 79 fL (82-100); MONOCYTES # (AUTO) 1.3 /CMM (0.1-1.30); MONOCYTES % (AUTO) 8.7 % (2.0-12.0); NEUTROPHILS # (AUTO) 7.8 /CMM (1.8-8.9); NEUTROPHILS % (AUTO) 50.4 % (43.0-81.0); PLATELET COUNT (AUTO) 511 /CMM (150-450); RED BLOOD CELL COUNT(AUTO) 2.99 MIL/uL (4.0-5.2)
[2018-10-04 07:46] LABS: BASOPHILS # (AUTO) 0.3 /CMM (0.0-0.2)
[2018-10-04 08:00] VITALS: BP 101/46
[2018-10-04 08:51] LABS: CREATININE 0.6 mg/dL (0.6-1.3); MAGNESIUM 1.4 mg/dL (1.8-2.4); POTASSIUM 4.7 mmol/L (3.5-5.1)
[2018-10-04] MEDS: FLUTICASONE/VILANTEROL 1 EACH BLST.W.DEV IH SCH (08:53)
[2018-10-04] MEDS: FOLIC ACID 1 MG TABLET PO SCH (08:53)
[2018-10-04] MEDS: MULTIVITAMINS,THERAGRAN 1 UDTAB TABLET PO SCH (08:53)
[2018-10-04] MEDS: LACTOBACILLUS RHAMNOSUS GG 1 EACH CAP.SPRINK PO SCH (08:53)
[2018-10-04] MEDS: AMOX/CLAVULANATE 875 MG TABLET PO SCH (08:53)
[2018-10-04] MEDS: CHOLECALCIFEROL 1,000 UNIT TABLET (VIT D3) PO SCH (08:54)
[2018-10-04] MEDS ORDERED: AMOX-427 PO (11:44)
[2018-10-04] MEDS ORDERED: MAGNESIUM OXIDE 400 MG TABLET PO ONE (12:00)
[2018-10-04] MEDS ORDERED: diphenhydrAMINE HCL 50 MG/ML VIAL IV ONE (12:00)
[2018-10-04] MEDS ORDERED: HYDROMORPHONE INJ 2 MG/ML DISP.SYRIN IV ONE (12:00)
[2018-10-04] MEDS ORDERED: KEY,NONCONTROL,TO KEEP IN PYXI 1 EA MC ONE (15:38)
--- NOTE | 2018-10-04 16:00 | NUR ---
MS RN NOTES PATIENT DISCHARGE HOME WITH STABLE VITAL SIGNS. PATIENT ALERT ORIENTED X 4. NO ACUTE DISTRESS NOTED, BREATHING UNLABORED. NO SOB NOTED. DENIED PAIN. DISCHARGE INSTRUCTIONS GIVEN TO THE PATIENT INCLUDING FOLLOW UP WITH PRIMARY DOCTOR AND HEMATOLOGY AND NEW PRESCRIPTION, VERBALIZED UNDERSTANDING. ALL BELONGINGS ACCOUNTED FOR. IV ACCESS REMOVED, NO BLEEDING NO REDNESS NO SWELLING NOTED. ASSISTED TO THE LOBBY PICKED UP VIA PRIVATE CAR IN STABLE CONDITION.
== END 2018-10-04 15:00 | disposition home or self-care (01) | DRG 811 ==
LOC: TELE1 11:19 → MEDSG1 09-29 12:55
PROVIDERS: ADMIT Registered Nurse; ATTEND Nurse Practitioner Acute Care
PROC: 30233N1 Transfusion of Nonautologous Red Blood Cells into Peripheral Vein, Percutaneous Approach (ICD-10-PCS; principal; 2018-10-03)
DX: D57.01 Hb-SS disease with acute chest syndrome (principal); J15.9 Unspecified bacterial pneumonia; E87.1 Hypo-osmolality and hyponatremia; E66.9 Obesity, unspecified; R74.0 Nonspecific elevation of levels of transaminase and lactic acid dehydrogenase [LDH]; Z68.26 Body mass index [BMI] 26.0-26.9, adult; Z99.81 Dependence on supplemental oxygen; Z86.14 Personal history of Methicillin resistant Staphylococcus aureus infection; Z83.3 Family history of diabetes mellitus; Z82.49 Family history of ischemic heart disease and other diseases of the circulatory system; Z82.3 Family history of stroke; I50.9 Heart failure, unspecified; E83.42 Hypomagnesemia; Z96.649 Presence of unspecified artificial hip joint; Z90.49 Acquired absence of other specified parts of digestive tract; Z79.51 Long term (current) use of inhaled steroids; Z88.1 Allergy status to other antibiotic agents; Z88.5 Allergy status to narcotic agent; Z91.048 Other nonmedicinal substance allergy status; J45.909 Unspecified asthma, uncomplicated; K76.9 Liver disease, unspecified; D89.9 Disorder involving the immune mechanism, unspecified; Z87.39 Personal history of other diseases of the musculoskeletal system and connective tissue
CPT/HCPCS: 36415; 71045-TC; 80048-TC; 80053-TC; 80061-TC; 81000-TC; 82247-TC; 82248-TC; 83605-TC; 83735-TC; 84100-TC; 84443-TC; 84484-TC; 84703-TC; 85025-TC; 85045-TC; 85730-TC; 86706; 86803; 86850-TC; 86921-TC; 87070-TC; 87081-TC; 87340; 87400; 94799-TC; A4216; A6403; G0378; J0696; J1170; J1200; J1650; J2020; J2405; J2543; J3475; J3490; J7030; J7050; J7060; P9016-BL

== ENCOUNTER 2018-12-25 22:45 | Inpatient (IN) | payer MEDICARE, OTHER ==
[~2018-12-25] VITALS: Ht 165.1 cm; Wt 69.9 kg
[~2018-12-25 22:45] MED LIST: ALBU18HF2 INH; AMOX-427 PO; CHOL100044 PO; DEFE360T PO; DIPH25CA83 PO; FERRIPROX PO; FLUT1DIS3 IH; FOLI1TAB16 PO; LORA0.5T PO; MULT-24 PO; TIZA4TAB5 PO; ZOLP10TA6 PO
--- NOTE | 2018-12-25 22:50 | NUR ---
"BIB SELF C/O "SICKLE CELL CRISIS, FEVER, WEAKNESS AND GEN BODY PAIN X2 DAYS" PT AAOX4, -SOB, NAD NOTED, VSS, PENDING MD MORALES
[2018-12-25 23:51] LABS: LYMPHOCYTES # (AUTO) 5.2 /CMM (0.8-4.8); RED BLOOD CELL COUNT(AUTO) 2.51 MIL/uL (4.0-5.2)
[2018-12-25] MEDS ORDERED: ONDANSETRON HCL/PF 4 MG/2 ML VIAL ONE (23:52)
[2018-12-25] MEDS ORDERED: HYDROMORPHONE 1 MG/1 ML DISP.SYRIN ONE (23:52)
[2018-12-25] MEDS ORDERED: diphenhydrAMINE HCL 50 MG/ML VIAL ONE (23:52)
[2018-12-25 23:55] LABS: BASOPHILS # (AUTO) 0.2 /CMM (0.0-0.2); BASOPHILS % (AUTO) 1.5 % (0.0-2.0); EOSINOPHILS % (AUTO) 5.7 % (0.0-6.0); HEMATOCRIT 22 % (33-45); HEMOGLOBIN 7.3 g/dL (11.5-14.8); LYMPHOCYTES % (AUTO) 32.8 % (20.0-44.0); MEAN CORPUSCULAR HGB CONC 34 g/dl (31.0-36.0); MEAN CORPUSCULAR VOLUME 85 fL (82-100); MONOCYTES # (AUTO) 1.7 /CMM (0.1-1.30); MONOCYTES % (AUTO) 10.8 % (2.0-12.0); NEUTROPHILS # (AUTO) 7.8 /CMM (1.8-8.9); NEUTROPHILS % (AUTO) 49.2 % (43.0-81.0); PLATELET COUNT (AUTO) 557 /CMM (150-450); WHITE BLOOD COUNT (AUTO) 15.8 K/uL (4.3-11.0)
[2018-12-26] VITALS (8 sets, daily range): BP systolic 99–138; BP diastolic 71–88
[2018-12-26] MEDS ORDERED: ONDANSETRON HCL/PF 4 MG/2 ML VIAL IVP ONE
[2018-12-26] MEDS ORDERED: IV NS 0.9% 1,000 ML BAG IV ONE
[2018-12-26 00:04] LABS: CALCIUM, SERUM 8.5 mg/dL (8.5-10.1); CREATININE 0.8 mg/dL (0.6-1.3)
[2018-12-26 00:09] LABS: ALBUMIN 3.3 g/dL (3.4-5.0); BILIRUBIN,DIRECT 0.8 mg/dL (0.0-0.2); BILIRUBIN,TOTAL 3.9 mg/dL (0.2-1.0); TOTAL PROTEIN, SERUM 8.1 g/dL (6.4-8.2)
[2018-12-26 00:11] LABS: APPEARANCE,URINE Clear (CLEAR); BILIRUBIN,URINE Negative (NEGATIVE); BLOOD, URINE Negative Ery/uL (NEGATIVE); COLOR,URINE Yellow (YELLOW); KETONES,URINE Negative (NEGATIVE); LEUKOCYTE ESTERASE ,URINE Negative (NEGATIVE); NITRITE, URINE Negative (NEGATIVE); PROTEIN,URINE Negative (NEGATIVE); UGLUCOSE Negative (NEGATIVE)
[2018-12-26] MEDS ORDERED: HYDROMORPHONE INJ 0.5 MG/0.5 ML SYRINGE IV ONE (00:30)
[2018-12-26 00:44] LABS: BACTERIA,URINE Few /HPF (None Seen); RBC,URINE 0-2 /HPF (0-2); SQUAMOUS EPITHELIAL CELL,UR Few /HPF (None Seen); WBC,URINE 0-2 /HPF (0-3)
[2018-12-26] MEDS ORDERED: HYDROMORPHONE 1 MG/1 ML DISP.SYRIN ONE ×2 (00:46→01:36)
[2018-12-26] MEDS ORDERED: MAGNESIUM HYDROXIDE 30 ML UDC PO PRN (01:30)
[2018-12-26] MEDS ORDERED: HYDROCODONE/APAP 5/325MG 1 EACH TABLET PO PRN (01:30)
[2018-12-26] MEDS ORDERED: ALBUTEROL FS 2.5 MG/3 ML VIAL.NEB NEB PRN (01:30)
[2018-12-26] MEDS ORDERED: MAG HYDROX/AL HYDROX/SIMETH 30 ML UDC PO PRN (01:30)
[2018-12-26] MEDS ORDERED: LORAZEPAM 0.5 MG TABLET PO PRN (01:30)
[2018-12-26] MEDS ORDERED: diphenhydrAMINE HCL 50 MG/ML VIAL IV PRN ×2 (01:30→14:00)
--- NOTE | 2018-12-26 01:31 | NUR ---
REPORT GIVEN TO MITA JEWELL FOR MARS; PT WILL BE TRANSPORTED TO 3RD FLOOR
--- NOTE | 2018-12-26 01:40 | NUR ---
MS/RN RECEIVE PATIENT FROM ER VIA [facility]. PATIENT WAS AWAKE, ALERT, ORIENTED, NO DISTRESS NOTED, ADMISSION DONE PER PROTOCOL, PATIENT AGREED TO HAVE PICTURE TAKEN OF THE SCABS IN BLE, REFUSED BODY ASSESSMENT, PER PATIENT HER SKIN IS CLEAR. PLAN OF CARE DISCUSSED, VERBALIZED UNDERSTANDING AND AGREEMENT, TAUGHT THE USE OF CALL LIGHT AND PLACED AT BEDSIDE WITHIN REACH, INSISTED TO HAVE OXYGEN FOR COMFORT, PER PATIENT SHE HAS OXYGEN AT HOME NEEDED. WILL MONITOR.
[2018-12-26] MEDS ORDERED: HYDROMORPHONE INJ 2 MG/ML DISP.SYRIN IV ONE ×2 (02:00→06:00)
[2018-12-26] MEDS ORDERED: diphenhydrAMINE HCL 50 MG/ML VIAL IV ONE ×4 (02:00→06:00)
[2018-12-26] MEDS: IV NS 0.9% 1,000 ML IV PRN ×2 (02:19→18:38)
[2018-12-26] MEDS: TIZANIDINE HCL 4 MG TABLET PO PRN (02:42)
--- NOTE | 2018-12-26 03:09 | NUR ---
MS/RN PATIENT IS ASKING FOR DILAUDID AND BENADRYL, MEDS ARE NOT DUE YET AT THIS TIME, OBTAINED ORDER TO GIVE DILAUDID 1 MG IV AND BENADRYL IV X 1. CARRIED OUT.
[2018-12-26] MEDS ORDERED: HYDROMORPHONE 1 MG/1 ML DISP.SYRIN IV ONE ×2 (03:30)
--- NOTE | 2018-12-26 05:34 | NUR ---
MS/RN PATIENT WANTS TO GET THE DILAUDID 2 MG IV AND BENADRYL 50 MG IV AT 0545. PATIENT RECEIVED DILAUDID 1 MG IV X1 AND BENADRYL 25 MG IV X1 AT 0335. CALLED [employer] LEFT MESSAGE TO LET MD KNOW OF THE PATIENT'S REQUEST.
--- NOTE | 2018-12-26 05:44 | NUR ---
MS/RN DARON EMPLOYMENT TRAINER CALLED BACK WITH ORDERS OF DILAUDID 2 MG IV X1 NOW AND BENADRYL 50 MG IV X1 NOW WERE RECEIVED. CARRIED OUT.
[2018-12-26 06:55] LABS: BASOPHILS # (AUTO) 0.4 /CMM (0.0-0.2); BASOPHILS % (AUTO) 2.5 % (0.0-2.0); EOSINOPHILS % (AUTO) 3.9 % (0.0-6.0); HEMATOCRIT 21 % (33-45); LYMPHOCYTES # (AUTO) 5.9 /CMM (0.8-4.8); LYMPHOCYTES % (AUTO) 39.4 % (20.0-44.0); MEAN CORPUSCULAR HGB CONC 33 g/dl (31.0-36.0); MEAN CORPUSCULAR VOLUME 86 fL (82-100); MONOCYTES # (AUTO) 1.4 /CMM (0.1-1.30); MONOCYTES % (AUTO) 9.5 % (2.0-12.0); NEUTROPHILS # (AUTO) 6.7 /CMM (1.8-8.9); NEUTROPHILS % (AUTO) 44.7 % (43.0-81.0); PLATELET COUNT (AUTO) 521 /CMM (150-450); RED BLOOD CELL COUNT(AUTO) 2.42 MIL/uL (4.0-5.2); WHITE BLOOD COUNT (AUTO) 14.9 K/uL (4.3-11.0)
--- NOTE | 2018-12-26 07:02 | NUR ---
MS/RN PATIENT IS AWAKE AT THIS TIME, COMFORTABLE, PAIN LEVEL TOLERABLE, NO DISTRESS NOTED, ALL NEEDS ATTENDED AT THIS TIME, WILL CONTINUE TO MONITOR.
[2018-12-26 07:29] LABS: ALBUMIN 3.2 g/dL (3.4-5.0); BILIRUBIN,DIRECT 0.6 mg/dL (0.0-0.2); CALCIUM, SERUM 8.3 mg/dL (8.5-10.1); CREATININE 0.7 mg/dL (0.6-1.3); MAGNESIUM 1.6 mg/dL (1.8-2.4); PHOSPHORUS 4.1 mg/dL (2.5-4.9); TOTAL PROTEIN, SERUM 7.9 g/dL (6.4-8.2)
[2018-12-26 07:34] LABS: HEMOGLOBIN 6.8 g/dL (11.5-14.8)
--- NOTE | 2018-12-26 07:34 | NUR ---
RECEIVED CRITICAL LAB RESULT FROM LYDIA @ LAB: HGB LEVEL
--- NOTE | 2018-12-26 08:28 | NUR ---
1U BLOOD ORDERED, CONSENT SIGNED AND PLACED IN CHART
[2018-12-26] MEDS: CHOLECALCIFEROL 1,000 UNIT TABLET (VIT D3) PO SCH (08:56)
[2018-12-26] MEDS: FLUTICASONE/VILANTEROL 1 EACH BLST.W.DEV IH SCH (08:56)
[2018-12-26] MEDS: PANTOPRAZOLE 40 MG TABLET.DR PO SCH (08:57)
[2018-12-26] MEDS: MULTIVITAMINS,THERAGRAN 1 UDTAB TABLET PO SCH (08:57)
[2018-12-26] MEDS: FOLIC ACID 1 MG TABLET PO SCH (08:59)
[2018-12-26] MEDS ORDERED: FOLIC ACID 1 MG TABLET PO SCH (09:00)
[2018-12-26] MEDS ORDERED: FERRIPROX PO SCH (09:00)
[2018-12-26] MEDS ORDERED: DEFERASIROX PO SCH (09:00)
[2018-12-26] MEDS: ONDANSETRON HCL/PF 4 MG/2 ML VIAL IVP PRN ×2 (10:02→18:38)
[2018-12-26] MEDS: Magnesium 1GM/D5W 100ML PREMIX 100 ML IV SCH ×2 (10:02→12:16)
[2018-12-26] MEDS: diphenhydrAMINE HCL 50 MG/ML VIAL IV PRN ×3 (10:02→22:53)
[2018-12-26] MEDS: HYDROMORPHONE INJ 2 MG/ML DISP.SYRIN IV PRN ×4 (10:03→22:53)
[2018-12-26 10:27] LABS: EOSINOPHILS % (MANUAL) 2 % (0-4); LYMPHOCYTES % (MANUAL) 31 % (16-48); MONOCYTES % (MANUAL) 11 % (0-11.0); MYELOCYTES % 2 % (0-0); NEUTROPHILS % (MANUAL) 54 (42-76)
[2018-12-26] MEDS ORDERED: lidocaine patch TP (11:31)
--- NOTE | 2018-12-26 13:35 | NUR ---
CALL PLACED TO [facility] FOR DR. DAVIS: PATIENT REQUEST FOR 50MG BENADRYL PRIOR TO BLOOD TRANSFUSION & HOME MED - LIDOCAINE PATCH
--- NOTE | 2018-12-26 13:40 | NUR ---
RECEIVED CALL BACK FROM DR. DAVIS. HEIKE TO GIVE 50MG BENADRYL IV (PATIENT REPORTS REACTIONS) BEFORE BLOOD TRANSFUSION AND LIDOCAINE PATCH.
--- NOTE | 2018-12-26 14:50 | NUR ---
BLOOD TRANSFUSION BEGUN. SEE DOCUMENTATION FOR VITALS. PREMEDICATED WITH BENADRYL PER MD ORDER
--- NOTE | 2018-12-26 15:05 | NUR ---
NO S/S TRANSFUSION REACTION NOTED. VITALS STABLE, SEE DOCUMENTATION. WILL CONTINUE TO MONITOR
[2018-12-26] MEDS ORDERED: LIDOCAINE 5% (PATCH) 1 EA PATCH TP SCH (16:00)
--- NOTE | 2018-12-26 17:15 | NUR ---
LIDOCAINE PATCH APPLIED TO LOWER BACK
--- NOTE | 2018-12-26 17:30 | NUR ---
TRANSFUSION COMPLETE. NO S/S TRANSFUSION REACTION. SEE VITALS.
--- NOTE | 2018-12-26 18:45 | NUR ---
LIDOCAINE PATCH REMOVED BY PATIENT, STATING "SHE WANTS HER OWN BECAUSE THE HOSPITAL'S DOES NOT WORK"
--- NOTE | 2018-12-26 19:35 | NUR ---
RN OPEN NOTES RECEIVED PATIENT AWAKE IN BED. A/OX4. NO SIGNS OF DISTRESS OR DISCOMFORT. BREATHING EVEN AND UNLABORED. HAS LCW PORTACATH, PATENT AND INTACT. BED IN LOW LOCKED POSITION WITH SIDE RAILS X2. CALL LIGHT WITHIN REACH. WILL CONTINUE TO MONITOR.
[2018-12-26] MEDS: LIDOCAINE TP SCH (22:53)
--- NOTE | 2018-12-26 22:53 | NUR ---
RN NOTES ADMINISTERED DILAUDID 2 MG ORDERED FOR PAIN 9/10 IN R CHEST, LEGS AND LOWER BACK AND ALSO ADMINISTERED BENADRYL 25MG ORDERED FOR ITCHING AND PATIENT REQUEST. VSS. WILL CONTINUE TO MONITOR.
[2018-12-27] MEDS: TIZANIDINE HCL 4 MG TABLET PO PRN (02:02)
[2018-12-27] MEDS: ZOLPIDEM TARTRATE 5 MG TABLET PO PRN (02:03)
[2018-12-27] MEDS: diphenhydrAMINE HCL 50 MG/ML VIAL IV PRN ×6 (02:57→22:57)
[2018-12-27] MEDS: HYDROMORPHONE INJ 2 MG/ML DISP.SYRIN IV PRN ×6 (02:57→22:57)
--- NOTE | 2018-12-27 02:57 | NUR ---
RN NOTES ADMINISTERED DILAUDID 2 MG ORDERED FOR PAIN 8/10 IN R CHEST, LEGS AND LOWER BACK AND ALSO ADMINISTERED BENADRYL 25MG ORDERED FOR ITCHING AND PATIENT REQUEST. VSS. WILL CONTINUE TO MONITOR.
[2018-12-27] MEDS: ONDANSETRON HCL/PF 4 MG/2 ML VIAL IVP PRN (03:08)
[2018-12-27 06:22] LABS: BASOPHILS # (AUTO) 0.3 /CMM (0.0-0.2); BASOPHILS % (AUTO) 2.2 % (0.0-2.0); EOSINOPHILS % (AUTO) 6.5 % (0.0-6.0); HEMATOCRIT 24 % (33-45); LYMPHOCYTES # (AUTO) 4.6 /CMM (0.8-4.8); LYMPHOCYTES % (AUTO) 30.9 % (20.0-44.0); MEAN CORPUSCULAR HGB CONC 34 g/dl (31.0-36.0); MEAN CORPUSCULAR VOLUME 83 fL (82-100); MONOCYTES # (AUTO) 1.5 /CMM (0.1-1.30); MONOCYTES % (AUTO) 10.2 % (2.0-12.0); NEUTROPHILS # (AUTO) 7.5 /CMM (1.8-8.9); NEUTROPHILS % (AUTO) 50.2 % (43.0-81.0); PLATELET COUNT (AUTO) 503 /CMM (150-450); RED BLOOD CELL COUNT(AUTO) 2.82 MIL/uL (4.0-5.2); WHITE BLOOD COUNT (AUTO) 14.9 K/uL (4.3-11.0)
--- NOTE | 2018-12-27 06:55 | NUR ---
RN CLOSING NOTES PATIENT AWAKE IN BED. A/OX4. NO SIGNS OF DISTRESS OR DISCOMFORT. BREATHING EVEN AND UNLABORED. HAS LCW PORTACATH WITH NS INFUSING, PATENT AND INTACT. ALL NEEDS MET. NO SIGNIFICANT CHANGES THROUGH THE NIGHT. BED IN LOW LOCKED POSITION WITH SIDE RAILS X2. CALL LIGHT WITHIN REACH. WILL ENDORSE TO AM SHIFT FOR MARS.
--- NOTE | 2018-12-27 07:06 | NUR ---
RN NOTES ADMINISTERED DILAUDID 2 MG ORDERED FOR PAIN 8/10 IN R CHEST, LEGS AND LOWER BACK AND ALSO ADMINISTERED BENADRYL 25MG ORDERED FOR ITCHING AND PATIENT REQUEST. VSS. WILL ENDORSE TO AM SHIFT.
[2018-12-27 07:20] LABS: CALCIUM, SERUM 8.5 mg/dL (8.5-10.1); CREATININE 0.8 mg/dL (0.6-1.3); MAGNESIUM 1.7 mg/dL (1.8-2.4); POTASSIUM 4.3 mmol/L (3.5-5.1)
[2018-12-27 08:00] VITALS: BP 93/64
--- NOTE | 2018-12-27 08:00 | NUR ---
RN OPEN NOTES RECEIVED PATIENT AWAKE IN BED. A/OX4. NO SIGNS OF DISTRESS OR DISCOMFORT. ON PAIN MGT FOR GEN BODY PAIN.BREATHING EVEN AND UNLABORED ON ROOM AIR. HAS LCW PORTACATH, PATENT AND INTACT WITH ONGOING IVF NS AT 100 ML/HR INFUSING WELL.WITH BRP WITH ASSIST. BED IN LOW LOCKED POSITION WITH SIDE RAILS X2. CALL LIGHT WITHIN REACH. WILL CONTINUE TO MONITOR.
[2018-12-27] MEDS: IV NS 0.9% 1,000 ML IV PRN ×2 (08:38→20:28)
[2018-12-27] MEDS: MULTIVITAMINS,THERAGRAN 1 UDTAB TABLET PO SCH (08:38)
[2018-12-27] MEDS: PANTOPRAZOLE 40 MG TABLET.DR PO SCH (08:39)
[2018-12-27] MEDS: FOLIC ACID 1 MG TABLET PO SCH (08:39)
[2018-12-27] MEDS: CHOLECALCIFEROL 1,000 UNIT TABLET (VIT D3) PO SCH (08:39)
[2018-12-27] MEDS: FLUTICASONE/VILANTEROL 1 EACH BLST.W.DEV IH SCH (08:55)
[2018-12-27] MEDS: Magnesium 1GM/D5W 100ML PREMIX 100 ML IV SCH ×2 (09:47→10:48)
[2018-12-27 16:00] VITALS: BP 132/87
--- NOTE | 2018-12-27 19:30 | NUR ---
RECEIVED PATIENT IN BED AWAKE. AO X 3, ABLE TO MAKE NEEDS KNOWN. NO ACUTE DISTRESS NOTED. MONITORED FOR PAIN. IV SITE PATENT, INTACT; IVF INFUSING ORDERED. SAFETY REMINDERS GIVEN. ON LOW BED WITH BILATERAL UPPER SIDE RAILS UP. CALL GARCIA WITHIN EASY REACH. WILL CONTINUE TO MONITOR.
[2018-12-27 20:00] VITALS: BP 108/71
[2018-12-27] MEDS: LIDOCAINE TP SCH (20:47)
[2018-12-27 20:53] VITALS: BP 108/71
[2018-12-28] MEDS: ZOLPIDEM TARTRATE 5 MG TABLET PO PRN (01:52)
[2018-12-28] MEDS: TIZANIDINE HCL 4 MG TABLET PO PRN (02:13)
[2018-12-28] MEDS ORDERED: hydrOXYzine PAMOATE 25 MG CAPSULE PO PRN (02:30)
[2018-12-28] MEDS: HYDROMORPHONE INJ 2 MG/ML DISP.SYRIN IV PRN ×2 (02:59→08:25)
[2018-12-28] MEDS: diphenhydrAMINE HCL 50 MG/ML VIAL IV PRN ×2 (02:59→08:24)
--- NOTE | 2018-12-28 06:00 | NUR ---
PATIENT IN BED ASLEEP, EASILY AROUSABLE. RESPIRATIONS EVEN. NO SIGNS OF PAIN NOTED. DUE MED GIVEN WITH NO ASE NOTED. NEEDS ATTENDED. SAFETY PRECAUTIONS AND COMFORT MEASURES IN PLACE. WILL GIVE REPORT TO DAY SHIFT FOR CONTINUITY OF CARE.
[2018-12-28 08:00] VITALS: BP 86/58
--- NOTE | 2018-12-28 08:00 | NUR ---
RN OPEN NOTES RECEIVED PATIENT AWAKE IN BED. A/OX4. NO SIGNS OF DISTRESS OR DISCOMFORT. ON PAIN MGT FOR GEN BODY PAIN.WITH EFFECTIVE RESULT.BREATHING EVEN AND UNLABORED ON ROOM AIR.AMBULATES AD ONEL WITH STEADY GAIT. HAS LCW PORTACATH, PATENT AND INTACT WITH ONGOING IVF NS AT 100 ML/HR INFUSING WELL.WITH BRP WITH ASSIST. BED IN LOW LOCKED POSITION WITH SIDE RAILS X2. CALL LIGHT WITHIN REACH. WILL CONTINUE TO MONITOR.
[2018-12-28 08:22] LABS: BASOPHILS # (AUTO) 0.2 /CMM (0.0-0.2); BASOPHILS % (AUTO) 2.1 % (0.0-2.0); EOSINOPHILS % (AUTO) 9.1 % (0.0-6.0); HEMATOCRIT 22 % (33-45); HEMOGLOBIN 7.6 g/dL (11.5-14.8); LYMPHOCYTES # (AUTO) 3.4 /CMM (0.8-4.8); LYMPHOCYTES % (AUTO) 29.8 % (20.0-44.0); MEAN CORPUSCULAR HGB CONC 35 g/dl (31.0-36.0); MEAN CORPUSCULAR VOLUME 83 fL (82-100); NEUTROPHILS # (AUTO) 5.6 /CMM (1.8-8.9); PLATELET COUNT (AUTO) 477 /CMM (150-450); RED BLOOD CELL COUNT(AUTO) 2.62 MIL/uL (4.0-5.2); WHITE BLOOD COUNT (AUTO) 11.3 K/uL (4.3-11.0)
[2018-12-28] MEDS: CHOLECALCIFEROL 1,000 UNIT TABLET (VIT D3) PO SCH (08:24)
[2018-12-28] MEDS: PANTOPRAZOLE 40 MG TABLET.DR PO SCH (08:24)
[2018-12-28] MEDS: FOLIC ACID 1 MG TABLET PO SCH (08:24)
[2018-12-28] MEDS: MULTIVITAMINS,THERAGRAN 1 UDTAB TABLET PO SCH (08:24)
[2018-12-28] MEDS: FLUTICASONE/VILANTEROL 1 EACH BLST.W.DEV IH SCH (08:42)
[2018-12-28] MEDS: IV NS 0.9% 1,000 ML IV PRN (09:46)
[2018-12-28 11:10] VITALS: BP 105/64
--- NOTE | 2018-12-28 11:17 | NUR ---
DR DAVIS WANTED THE V/S TO BE RECHECKED. BP 105/[address] DAVIS MADE AWARE AND ORDERED FOR PT TO BE DISCHARGE HOME.INFORMED PT THAT SHE WILL BE DISCHARGED AND PT GOT SO MAD SAYING THAT SHE STILL HAS TO GET HER BENADRYL IV AND DILAUDID IV WHEN IT IS DUE.EXPLAINED THAT WE CAN'T ADMINISTER ALL THIS IV MEDS WHEN PT IS DISCHARGED HOME BECAUSE ITS UNSAFE AND HER BP CAN DROP LOW.PT WAS SO MAD C/O THAT SHE DIDN'T GET PROPER CARE IN THIS HOSPITAL SAYING THAT SHE WAS HAVING A LOT OF BODY RASHES ALL OVER WHEREIN AFTER DOING BODY CHECK ON HER,NO RASHES CAN BE SEEN BUT SIMPLY OLD SCARS IN HER LEGS,ARMS AND CHEST.EXPLAINED THAT WE NEED TO REMOVED HER LT CHEST WALL PORT A CATH BUT PT REFUSED SAYING THAT SHE GETS TX FROM DR ABEL MEDEROS AND CAME IN WITH THE PORT A CATH AND CAN'T BE REMOVED.CLARIFIED WITH DR MEDEROS WHO SAID THAT PT GETS TX IN THEIR CLINIC AND WILL HAVE TO KEEP THE PORT A CATH IN PLACE.
--- NOTE | 2018-12-28 12:15 | NUR ---
SEEN THE PT RUNNING STRAIGHT TO THE ELEVATOR WITHOUT PERMISSION.STOPPED THE PT AND THE PT WAS MAD SCREAMING THAT NO ONE CAN STOP HER FROM LEAVING.EXPLAINED TO THE PT THAT WE STILL HAVE TO WAIT FOR THE DOCTOR'S DISCHARGE ORDER.PT STATED THAT SHE CAN NO LONGER WAIT AND HAS TO LEAVE EVEN WITHOUT THE DISCHARGE PAPERS,ALSO PT REFUSED TO HAVE HER BELONGINGS BE CHECKED.INSPITE OF EXPLAINING THE RISKS AND BENEFITS PT INSISTS TO LEAVE.
== END 2018-12-28 12:33 | disposition home or self-care (01) | DRG 811 ==
LOC: ER 22:48 → MED 12-26 01:16
PROVIDERS: ADMIT Internal Medicine; ATTEND Internal Medicine
PROC: 30233N1 Transfusion of Nonautologous Red Blood Cells into Peripheral Vein, Percutaneous Approach (ICD-10-PCS; principal; 2018-12-26)
DX: D57.00 Hb-SS disease with crisis, unspecified (principal); J96.20 Acute and chronic respiratory failure, unspecified whether with hypoxia or hypercapnia; D63.8 Anemia in other chronic diseases classified elsewhere; D69.6 Thrombocytopenia, unspecified; E83.42 Hypomagnesemia; G89.4 Chronic pain syndrome; J45.909 Unspecified asthma, uncomplicated; Z90.49 Acquired absence of other specified parts of digestive tract; K52.9 Noninfective gastroenteritis and colitis, unspecified; Z88.1 Allergy status to other antibiotic agents; Z88.5 Allergy status to narcotic agent; Z91.048 Other nonmedicinal substance allergy status; Z79.51 Long term (current) use of inhaled steroids; Z79.899 Other long term (current) drug therapy; Z82.3 Family history of stroke; Z82.49 Family history of ischemic heart disease and other diseases of the circulatory system; Z96.649 Presence of unspecified artificial hip joint; Z83.3 Family history of diabetes mellitus
CPT/HCPCS: 36415; 71045-TC; 80048-TC; 80053-TC; 80076-TC; 81000-TC; 83735-TC; 84100-TC; 84703-TC; 85025-TC; 85045-TC; 85730-TC; 86850-TC; 86921-TC; 87081-TC; 87086-TC; A4216; G0378; J1170; J1200; J2405; J3475; J7030; P9016-BL